=== PATIENT | female | born 2000 | race Caucasian/White ===

== ENCOUNTER → 2018-12-03 13:59 | Outpatient (CLI) | payer OTHER, SELFPAY | PROVIDERS: Visit Provider Internal Medicine Adolescent Medicine | DX: J02.9 Acute pharyngitis, unspecified (principal) | CPT/HCPCS: 87070 ==

== ENCOUNTER → 2019-09-04 09:20 | Outpatient (CLI) | payer OTHER, SELFPAY ==
--- NOTE | 2019-09-04 10:03 | XR_ITS ---
PROCEDURE: XR CERVICAL SPINE 5V CLINICAL INDICATION: NECK PAIN, MIGRAINE,VERIGO, old injury COMPARISON: No exams were available for comparison FINDINGS: There is normal alignment. The disc spaces are well preserved. No prevertebral soft tissue swelling is evident. There is minimal cervical curvature convex right superiorly. On the left posterior oblique view there is a lucency through the mid aspect of the right pedicle of C3. While this could be due to an overlying Mach line, 1 cannot exclude the possibility of a nondisplaced fracture. CT may provide further evaluation. No other significant anomalies are evident. IMPRESSION: Possible nondisplaced fracture of the right pedicle of C3 versus an overlying artifact. CT may provide further evaluation. Otherwise negative Dictated by: Diomedes Estrada MD 09/04/2019 11:53 Electronically signed by Diomedes Estrada MD in [place] 09/04/2019 11:53
[2019-09-04 10:13] LABS: Basophils # 0.1 K/mm3 (0-0.2); Basophils % 0.8 % (0.1-2.0); Eosinophils # 0.2 K/mm3 (0.0-0.4); Hematocrit 39.9 % (37.0-47.0); Hemoglobin 12.8 g/dL (12.2-16.2); Lymphocytes # 2.1 K/mm3 (0.7-4.5); Lymphocytes % 25.6 % (10-50); Mean Corpuscular Hemoglobin 30.5 pg (27.0-31.2); Mean Corpuscular Volume 95.3 fl (81-99); Mean Platelet Volume 7.7 fl (7.4-10.4); Monocytes # 0.3 K/mm3 (0.1-1.0); Monocytes % 4.3 % (1.7-9.3); Neutrophils # 5.4 K/mm3 (1.8-7.8); Neutrophils % 67.3 % (37.0-80.0); Platelet Count 339 K/mm3 (142-424); Red Blood Count 4.19 M/mm3 (4.20-5.40); Red Cell Distribution Width 12.3 % (11.5-17.5)
[2019-09-04 11:37] LABS: Chloride 104 mmol/L (98-107); Potassium 4.5 mmoL/L (3.5-5.1); Sodium 141 mmol/L (136-145)
[2019-09-04 11:40] LABS: Alanine Aminotransferase 15 U/L (12-78); Albumin Level 4.7 g/dl (3.5-5.0); Albumin/Globulin Ratio 1.6 (1.1-1.8); Alkaline Phosphatase 39 U/L (38-126); Anion Gap 14.5 mEq/L (5-15); Aspartate Amino Transferase 25 U/L (14-36); Bilirubin,Total 0.6 mg/dl (0.2-1.3); Blood Urea Nitrogen 11 mg/dl (7-17); Carbon Dioxide 27 mmol/L (22.0-30.0); Estimated Glomerular Filt Rate 91 ml/min (>60); GFR (African American) 110 ML/MIN (>60); Globulin 2.9 g/dL (1.3-3.2); Total Protein,Serum 7.6 g/dl (6.3-8.2)
[2019-09-04 11:41] LABS: Glucose 86 mg/dl (74-100)
[2019-09-04 12:09] LABS: Thyroid Stimulating Hormone 1.74 uIU/mL (0.465-4.68)
[2019-09-05 10:18] LABS: Vitamin B12 381 pg/mL (232-1245); Vitamin D 25 Hydroxy 30.8 ng/mL (30.0-100.0)
== END ==
LOC: LAB 09:21 → RAD 09:53
PROVIDERS: PCP Internal Medicine Adolescent Medicine; Visit Provider Nurse Practitioner Family
DX: G43.109 Migraine with aura, not intractable, without status migrainosus (principal); M54.2 Cervicalgia; R42 Dizziness and giddiness
CPT/HCPCS: 36415; 72050; 80053; 82607; 82652; 84443; 85025

== ENCOUNTER → 2019-09-26 13:57 | Outpatient (CLI) | payer OTHER, SELFPAY ==
--- NOTE | 2019-09-26 14:00 | CT_ITS ---
PROCEDURE: CT CERVICAL SPINE WO CON CLINICAL INDICATION: NECK PAIN Left posterior neck pain, intermittent bilateral arm pain and numbness COMPARISON: No exams were available for comparison TECHNIQUE: Axial images obtained with sagittal and coronal reformats. All CT scans at the facility use one or more dose reduction, viz: automated exposure control, ma/kV adjustment per patient size (including targeted exams where dose is matched to indication, i.e. head), or iterative reconstruction technique. Axial spiral CT scanning performed of the cervical spine beginning at the base of the skull and continuing to the upper T-spine. 3-D multiplanar reconstruction with 3-D manipulation of volumetric data set in image rendering was completed by the radiologist and/or technologist with the supervision of the radiologist on independent workstation. FINDINGS: No fracture nor subluxation is evident. Normal prevertebral soft tissues. Facets, neural foramen and vertebral bodies intact and unremarkable. Normal C1/C2 relationships. Apices of lungs are clear with no acute findings. IMPRESSION: Cervical spine intact with no fracture nor subluxation. Dictated by: Diomedes Estrada MD 09/26/2019 14:47 Electronically signed by Diomedes Estrada MD in [place] 09/26/2019 14:47
== END ==
PROVIDERS: PCP Internal Medicine Adolescent Medicine; Visit Provider Nurse Practitioner Family
DX: M54.5 Low back pain (principal)
CPT/HCPCS: 72125

== ENCOUNTER 2019-09-30 08:00 | Outpatient (RCR) | payer OTHER, SELFPAY ==
--- NOTE | 2019-09-10 09:46 | [facility].PTOPEV ---
PT Outpatient Evaluation Rehab PT Outpatient Evaluation Start: 09/10/19 08:56 Freq: Status: Active Protocol: Document 09/10/19 09:06 KENNATRINA (Rec: 09/10/19 09:46 MUSTAPHA [id number]) Electronically Signed By Roge Reed PT 09/10/19 09:06 Outpatient Therapy Subjective History Subjective History This is the initial Physical Therapy evaluation for Belinda Lee. Pt is a 19 y/o female referred to PT for c/o cervical pain, BAINS's and vertigo. Pt reprots she began having cervical pain in 2006 when she was ~ 5 y/o when she fell off playground equipment onto her head. Pt reports chronic cervical pain since then. Pt reports she had increased pain when in HS and was performing HS archery. Pt reports pain has been consistent and now she gets severe migraine BAINS's and c/o dizziness when BAINS's get severe . Pt reprots most BAINS's occur on the L but some on R. Chief Complaint Pain,Stiff Symptom Type Ache,Throb,Sharp,Shooting Symptoms Relieved By Rest/Positioning,OTC Meds Symptoms Aggravated By Physical Activity,Lifting Prior Functional Limitations None Current Functional Limitations Lifting,Desk Work/Reading, Sleeping,Recreation Activity Symptom Description Constant but Variable Level of pain today (0-10) 3 Pain scale - at its best (0-10) 2 Pain scale - at its worst (0-10) 9 Cervical Eval Palpation Cervical Muscles R Cervical Paraspinal,L Cervical Paraspinal,R Suboccipital,L Suboccipital,R Upper Trapezius,L Upper Trapezius,R Thoracic Paraspinals,L Thoracic Paraspinals Cervical/Thoracic Palpation Findings Tenderness,Trigger Point, Muscle Guarding Flexibility Deficits Upper Trapezius Muscle Length (L) Mild Tightness Levaetor Scapulae Muscle Length (L) Mild Tightness Passive Joint Mobility Cervical PIVM Dec: R C2/3 L C2/3 R C3/4 L C3/4 R C4/5
== END 2019-09-30 08:05 | disposition home or self-care (01) ==
LOC: PT 08:00
PROVIDERS: PCP Internal Medicine Adolescent Medicine; Visit Provider Nurse Practitioner Family
DX: M54.2 Cervicalgia (principal); G43.109 Migraine with aura, not intractable, without status migrainosus; R42 Dizziness and giddiness
CPT/HCPCS: 97010; 97014; 97110; 97140; 97163; G0283

== ENCOUNTER 2020-10-28 08:00 | Outpatient (RCR) | payer BC, SELFPAY | END 2020-10-28 08:05 | disposition home or self-care (01) | LOC: PT 08:00 | PROVIDERS: PCP Internal Medicine Adolescent Medicine; Visit Provider Nurse Practitioner Family | DX: M54.32 Sciatica, left side | CPT/HCPCS: 97010; 97014; 97033; 97035; 97110; 97163; 97164; G0283 ==

== ENCOUNTER 2021-03-17 09:00 | Outpatient (RCR) | payer BC, SELFPAY | END 2021-03-17 09:05 | disposition home or self-care (01) | LOC: PT 09:00 | PROVIDERS: PCP Internal Medicine Adolescent Medicine | DX: M54.5 Low back pain (principal); M25.552 Pain in left hip | CPT/HCPCS: 20560; 97110; 97140; 97163 ==

== ENCOUNTER → 2021-06-22 13:06 | Outpatient (CLI) | payer BC, SELFPAY ==
[2021-06-22 13:24] LABS: Coronavirus 19, PCR Not Detected (NotDetected); Influenza A, PCR Not Detected (NotDetected); Influenza B, PCR Not Detected (NotDetected)
== END ==
PROVIDERS: PCP Internal Medicine Adolescent Medicine; Visit Provider Nurse Practitioner
DX: Z20.822 Contact with and (suspected) exposure to COVID-19 (principal)
CPT/HCPCS: C9803; U0003; U0005